=== PATIENT | male | born 1955 | race Caucasian/White ===

== ENCOUNTER 2018-06-01 18:08 | Emergency (ER) | payer BC ==
[2018-06-01] MEDS ORDERED: NORMAL SALINE 1000 ML 1,000 ML IV ONE (18:44)
[2018-06-01 19:03] LABS: ABSOLUTE EOSINOPHILS # (AUTO) 0.1 10^3/uL (0.0-0.6); ABSOLUTE MONOCYTES (AUTO) 0.7 10^3/uL (0.1-1.4); ABSOLUTE NEUT (AUTO) 5.3 10^3/uL (1.7-8.2); BASOPHILS % (AUTO) 0.4 % (0-2); EOSINOPHILS % (AUTO) 0.6 % (0-6); HEMATOCRIT 42.5 % (37.9-51.0); HEMOGLOBIN 14.4 g/dL (13.5-17.0); LYMPHOCYTES % (AUTO) 25.2 % (13-45); MEAN CORPUSCULAR HEMOGLOBIN 31.3 pg (27.0-33.4); MEAN CORPUSCULAR VOLUME 92 fl (80-97); MONOCYTES % (AUTO) 8.7 % (3-13); PLATELET COUNT 278 10^3/uL (150-450); RED BLOOD COUNT 4.62 10^6/uL (4.35-5.55); RED CELL DISTRIBUTION WIDTH 13.6 % (11.5-14.0); SEGMENTED NEUTROPHILS % (AUTO) 65.1 % (42-78); TOTAL CELLS COUNTED % (AUTO) 100 %; WHITE BLOOD COUNT 8.1 10^3/uL (4.0-10.5)
[2018-06-01 19:19] LABS: ALANINE AMINOTRANSFERASE 24 U/L (21-72); ALBUMIN 3.8 g/dL (3.5-5.0); ALKALINE PHOSPHATASE 68 U/L (38-126); ANION GAP 8 (5-19); ASPARTATE AMINO TRANSFERASE 19 U/L (17-59); BILIRUBIN,DIRECT 0.2 mg/dL (0.0-0.4); BILIRUBIN,TOTAL 0.3 mg/dL (0.2-1.3); BLOOD UREA NITROGEN 21 mg/dL (7-20); CALCIUM 9.6 mg/dL (8.4-10.2); CARBON DIOXIDE 27 mmol/L (22-30); CHLORIDE 105 mmol/L (98-107); CREATINE KINASE 115 U/L (55-170); GLUCOSE 118 mg/dL (75-110); SODIUM 139.9 mmol/L (137-145); TOTAL PROTEIN 6.1 g/dL (6.3-8.2)
--- NOTE | 2018-06-01 19:29 | RADIOLOGY REPORT (SQ) ---
EXAM DESCRIPTION: CHEST SINGLE VIEW COMPLETED DATE/TIME: 06/01/2018 7:03 pm REASON FOR STUDY: presyncope COMPARISON: None. EXAM PARAMETERS: NUMBER OF VIEWS: One view. TECHNIQUE: Single frontal radiographic view of the chest acquired. RADIATION DOSE: NA LIMITATIONS: None. FINDINGS: LUNGS AND PLEURA: No opacities, masses or pneumothorax. No pleural effusion. MEDIASTINUM AND HILAR STRUCTURES: No masses. Contour normal. HEART AND VASCULAR STRUCTURES: Heart normal in size. Normal vasculature. BONES: No acute findings. HARDWARE: None in the chest. OTHER: No other significant finding. IMPRESSION: NO ACUTE RADIOGRAPHIC FINDING IN THE CHEST. TECHNICAL DOCUMENTATION: JOB ID: [id number] [employer]- All Rights Reserved Reading location - IP/workstation name: [email or web address]
[2018-06-01 19:30] LABS: CREATINE KINASE MB 1.24 ng/mL (<4.55)
[2018-06-01 19:31] LABS: TROPONIN I < 0.012 ng/mL
--- NOTE | 2018-06-01 22:30 | ER Document Report ---
ED General - General Chief Complaint: Dizziness Stated Complaint: BLURRED VISION Time Seen by Provider: 06/01/18 18:43 Mode of Arrival: Ambulatory Information source: Patient - HPI Patient complains to provider of: Lightheadedness Onset: Other - 62-year-old man who presents for evaluation of lightheadedness which developed today while working outside. He notes that he had been exerting himself a good deal lately and has had episodes like this in the past which he believes may be related to dehydration. He does have a history of hypertension and does take medication for that at this time, does not take any other medicines and has no other real health problems. He denies any chest pain , palpitations, fevers chills abdominal pain shortness of breath or other symptoms, denies any focal numbness or weakness. - Related Data Allergies/Adverse Reactions: Penicillins Allergy (Unknown, Verified 09/28/11 10:44) Past Medical History - General Information source: Patient - Social History Smoking Status: Former Smoker Chew tobacco use (# tins/day): No Frequency of alcohol use: Rare Drug Abuse: None Family History: None Patient has suicidal ideation: No Patient has homicidal ideation: No - Past Medical History Cardiac Medical History: Reports: Hx Hypertension Endocrine Medical History: Reports: Hx Diabetes Mellitus Type 2 - PRE Renal/ Medical History: Denies: Hx Peritoneal Dialysis Review of Systems - Review of Systems -: Yes All other systems reviewed and negative Physical Exam - Vital signs Vitals: Resp Pulse Ox 14 94 06/01/18 18:41 06/01/18 18:41 - General General appearance: Appears well In distress: None - HEENT Head: Normocephalic Eyes: Normal Conjunctiva: Normal Cornea: Normal Extraocular movements intact: Yes Eyelashes: Normal Pupils: PERRL - Respiratory Respiratory status: No respiratory distress Chest status: Nontender Breath sounds: Normal Chest palpation: Normal - Cardiovascular Rhythm: Regular, Other Murmur: No - Abdominal Inspection: Normal Distension: No distension Tenderness: Nontender - Back Back: Normal - Extremities General upper extremity: Normal inspection, Nontender, Normal strength, Normal temperature General lower extremity: Normal inspection, Nontender, Normal strength, Normal temperature - Neurological Neuro grossly intact: Yes Cognition: Normal Orientation: AAOx4 Basim Coma Scale Eye Opening: Spontaneous [place] Coma Scale Verbal: Oriented Basim Coma Scale Motor: Obeys Commands Basim Coma Scale Total: 15 - Psychological Associated symptoms: Normal affect Course - Re-evaluation Re-evalutation: 06/02/18 04:23 Is a well-appearing 62-year-old man that presents for evaluation of lightheadedness in the setting of poor p.o. intake. His EKG is nondiagnostic, he is got a negative initial troponin will obtain labs and plan for cardiac monitoring, his blood pressure is noteworthy for being lower than expected for a patient with baseline hypertension. As his blood pressure is lower than expected we will plan for administration of a liter bolus and reassessment. While at rest this patient is not having any active symptoms at this time is got a benign neurologic examination. Second troponin is negative for this patient, after 4 hours of monitoring in the emergency department he was ambulatory without assistance he had orthostatic vital signs which are reassuring and remained essentially normal without complaint, he did have a elevated creatinine suggestive of renal insufficiency potentially underlying dehydration, he is never been told that he had this before. I did speak to him about the importance of following up with his primary physician as this may be a long standing issue and I did explain to him that I do believe that he is dehydrated. He notes that he will increase his p.o. intake, do not believe that this represents a CVA, IL, arrhythmia, or some other more serious underlying cause of his lightheadedness at this time. He is asymptomatic ambulatory without assistance and in tact. We will plan for this patient undergo discharge with return precautions in the care of his he is in agreement with this current course of actions. - Vital Signs Vital signs: Temp Pulse Resp BP Pulse Ox 98.9 F 73 16 108/69 98 06/01/18 23:01 06/01/18 22:38 06/01/18 23:01 06/01/18 23:01 06/01/18 23:01 - Laboratory Result Diagrams: 06/01/18 18:50 06/01/18 18:50 Laboratory results interpreted by me: 06/01/18 18:50 BUN 21 H Creatinine 1.73 H Est GFR ( Amer) 49 L Est GFR (Non-Af Amer) 40 L Glucose 118 H Total Protein 6.1 L Discharge - Discharge Clinical Impression: Dizziness, Dehydration Condition: Good Disposition: HOME, SELF-CARE Instructions: Dehydration ([facility]), Dizziness ([facility]) Additional Instructions: Your seen today in the emergency department for your dehydration. You had evaluation including a physical exam as well as blood tests and EKG and x-ray. I believe that your lightheadedness is because you are dehydrated. Do not take your blood pressure medication in the morning, make sure you are drinking lots of water over the next 2 days to help with your lightheadedness. Return in any case of worsening chest pain, lightheadedness, or other symptoms. Call your doctor this week for a follow-up appointment about today's visit. Referrals: MELLY SOMMER MD [Primary Care Provider] - Follow up as needed
[2018-06-01 23:32] VITALS: BP 108/69
--- NOTE | 2018-06-02 08:32 | EKG REPORT ---
SEVERITY:- OTHERWISE NORMAL ECG - SINUS RHYTHM BORDERLINE RIGHT AXIS DEVIATION : Confirmed by: Lety Denis 02-Jun-2018 08:31:43
== END 2018-06-01 23:20 | disposition home or self-care (01) ==
LOC: ER 18:08
DX: R42 Dizziness and giddiness (principal); E86.0 Dehydration; H53.8 Other visual disturbances; I10 Essential (primary) hypertension; E11.9 Type 2 diabetes mellitus without complications; Z88.0 Allergy status to penicillin
CPT/HCPCS: 93005; 99284; 96360; 36415; 82553; 82550; 85025; 80053; 84484; 71045; 93010; J7030

== ENCOUNTER 2018-11-17 11:30 | Emergency (ER) | payer BC ==
[2018-11-17] MEDS ORDERED: OXYCODONE-ACETAMINOPHEN 5-325 MG TABLET PO ONE (11:59)
--- NOTE | 2018-11-17 12:03 | ER Document Report ---
ED Medical Screen (RME) - General Chief Complaint: Knee Pain Stated Complaint: LEFT KNEE PAIN Time Seen by Provider: 11/17/18 11:47 Primary Care Provider: MELLY SOMMER MD [Primary Care Provider] - Follow up as needed Mode of Arrival: Ambulatory Information source: Patient Notes: Patient presents to the emergency department with complaints of left knee pain. He reports it started Friday after he was playing on the ground with his grandkids. He does not remember twisting it or hurting his knee but the knee started hurting afterwards. Denies history of gout. Denies this ever happening to before. Reports he took ibuprofen without relief of symptoms. Left knee is warm swollen slightly erythemic. I have greeted and performed a rapid initial assessment of this patient. A comprehensive ED assessment and evaluation of the patient, analysis of test results and completion of the medical decision making process will be conducted by additional ED providers. TRAVEL OUTSIDE OF THE [place] IN LAST 30 DAYS: No - Related Data Allergies/Adverse Reactions: Penicillins Allergy (Unknown, Verified 11/17/18 11:31) Past Medical History - Social History Chew tobacco use (# tins/day): No Frequency of alcohol use: Rare Drug Abuse: None - Past Medical History Cardiac Medical History: Reports: Hx Hypercholesterolemia, Hx Hypertension Endocrine Medical History: Reports: Hx Diabetes Mellitus Type 2 Renal/ Medical History: Denies: Hx Peritoneal Dialysis Physical Exam - Vital signs Vitals: Temp Pulse Resp BP Pulse Ox 97.4 F 72 18 122/75 95 11/17/18 11:35 11/17/18 11:35 11/17/18 11:35 11/17/18 11:35 11/17/18 11:35 Course - Vital Signs Vital signs: Temp Pulse Resp BP Pulse Ox 97.4 F 72 18 122/75 95 11/17/18 11:35 11/17/18 11:35 11/17/18 11:35 11/17/18 11:35 11/17/18 11:35 Doctor's Discharge - Discharge Referrals: MELLY SOMMER MD [Primary Care Provider] - Follow up as needed
--- NOTE | 2018-11-17 13:00 | RADIOLOGY REPORT (SQ) ---
EXAM DESCRIPTION: KNEE LEFT 3 VIEWS COMPLETED DATE/TIME: 11/17/2018 12:36 pm REASON FOR STUDY: knee pain, warm, erythema COMPARISON: None. NUMBER OF VIEWS: Three views. TECHNIQUE: AP, lateral, and sunrise patella radiographic images acquired of the left knee. LIMITATIONS: None. FINDINGS: MINERALIZATION: Normal. BONES: No acute fracture or dislocation. No worrisome bone lesions. JOINT: No effusion. SOFT TISSUES: No soft tissue swelling. No radio-opaque foreign body. OTHER: No other significant finding. IMPRESSION: NEGATIVE STUDY OF THE LEFT KNEE. NO RADIOGRAPHIC EVIDENCE OF ACUTE INJURY. TECHNICAL DOCUMENTATION: JOB ID: [id number] [employer]- All Rights Reserved Reading location - IP/workstation name: [email or web address]
--- NOTE | 2018-11-17 14:25 | ER Document Report ---
ED General - General Chief Complaint: Knee Pain Stated Complaint: LEFT KNEE PAIN Time Seen by Provider: 11/17/18 11:47 Primary Care Provider: MELLY SOMMER MD [Primary Care Provider] - Follow up as needed Mode of Arrival: Ambulatory Notes: 63 y.o. male presents to the emergency department with complaints of left knee pain. He reports it started Friday after he was playing on the ground with his grandkids. He does not remember twisting it or hurting his knee but the knee started hurting afterwards. Denies history of gout. Denies this ever happening to before. Reports he took ibuprofen one time on Friday night without relief of symptoms. Patient states it is gotten progressively worse and has limited range of motion. He is able to hobble around but has pain bearing weight on it. Patient denies fever, chills, nausea, vomiting. No other complaints TRAVEL OUTSIDE OF THE [place] IN LAST 30 DAYS: No - Related Data Allergies/Adverse Reactions: Penicillins Allergy (Unknown, Verified 11/17/18 11:31) Past Medical History - General Information source: Patient - Social History Smoking Status: Never Smoker Chew tobacco use (# tins/day): No Frequency of alcohol use: Rare Drug Abuse: None Family History: None Patient has suicidal ideation: No Patient has homicidal ideation: No - Past Medical History Cardiac Medical History: Reports: Hx Hypercholesterolemia, Hx Hypertension Endocrine Medical History: Reports: Hx Diabetes Mellitus Type 2 Renal/ Medical History: Denies: Hx Peritoneal Dialysis Review of Systems - Review of Systems Constitutional: See HPI EENT: No symptoms reported Cardiovascular: See HPI Respiratory: See HPI Gastrointestinal: See HPI Genitourinary: No symptoms reported Male Genitourinary: No symptoms reported Musculoskeletal: No symptoms reported Skin: No symptoms reported Hematologic/Lymphatic: No symptoms reported Neurological/Psychological: No symptoms reported Physical Exam - Vital signs Vitals: Temp Pulse Resp BP Pulse Ox 97.4 F 72 18 122/75 95 11/17/18 11:35 11/17/18 11:35 11/17/18 11:35 11/17/18 11:35 11/17/18 11:35 - Notes Notes: PHYSICAL EXAMINATION: Reviewed vital signs and charting by RN GENERAL: Alert, interacts well. No acute distress. HEAD: Normocephalic, atraumatic. EYES: Pupils equal and round. Extraocular movements intact. ENT: Oral mucosa moist NECK: Full range of motion. Trachea midline. EXTREMITIES: Moves all 4 extremities spontaneously. Mild edema left knee and slightly erythematous, No cyanosis. Normal distal neurovascular exam NEUROLOGIC: Oriented and appropriate. Normal speech. PSYCH: Normal affect, normal mood. SKIN: Warm, dry, normal turgor. No rashes or lesions noted. Course - Re-evaluation Re-evalutation: 11/17/18 14:19 Well-appearing and nontoxic. Patient does have range of motion with the knee although there is pain. Knee is warm to touch and mildly erythematous. I do not suspect patient has a septic joint at this time. Most likely a prepatellar bursitis. I will give patient instructions for home and follow-up with orthopedics if his symptoms do not improve in the next 1-2 weeks. - Vital Signs Vital signs: Temp Pulse Resp BP Pulse Ox 97.4 F 72 18 122/75 95 11/17/18 11:35 11/17/18 11:35 11/17/18 11:35 11/17/18 11:35 11/17/18 11:35 Discharge - Discharge Clinical Impression: Prepatellar bursitis of left knee Condition: Good Disposition: HOME, SELF-CARE Instructions: Bursitis ([facility]) Additional Instructions: You were seen in the emergency department this afternoon for knee pain. X-ray shows no concern for fracture, dislocation, or air in the soft tissue that would be concerning for serious infection. It is most likely that you have a prepatellar bursitis. This can happen with repeated kneeling on the ground. It is usually very painful. I do not think you have what is called septic arthritis as you are able to move your knee and you do not have fever or any systemic signs of infection. I strongly recommend that you take Motrin 600 mg every 6 hours [id number] for the next 3-5 days. You can also employ RICE treatment: Rest, ice, compression with an Mario wrap, and elevation of the extremity. If the next several days your symptoms do not improve recommend that you follow-up with orthopedics. I have given you a referral to their office. Your knee becomes more swollen, you are unable to move it at all, it becomes much redder and starts spreading, you develop a fever please immediately return to the emergency department as this is infection. Referrals: MELLY SOMMER MD [Primary Care Provider] - Follow up as needed
[2018-11-17 14:41] VITALS: BP 115/71
== END 2018-11-17 14:45 | disposition home or self-care (01) ==
LOC: ER 11:30
DX: M70.42 Prepatellar bursitis, left knee (principal); E78.00 Pure hypercholesterolemia, unspecified; I10 Essential (primary) hypertension; E11.9 Type 2 diabetes mellitus without complications; Z88.0 Allergy status to penicillin
CPT/HCPCS: 99283

== ENCOUNTER → 2020-06-02 | Outpatient (CLI) | payer BC ==
--- NOTE | 2020-06-02 13:58 | ER RDC ASSESSMENT REPORT ---
Intake - In the Last 14 days Have you been in close contact with someone CONFIRMED: No Worked in Healthcare?: No - Symptoms Subjective Fever([place] feverish): Yes Chills: No Muscule Aches: No Runny Nose: No Sore Throat: No Cough (New or worsening chronic cough): No Shortness of breath: No Nausea or Vomiting: No Headache: No Abdominal Pain: No Diarrhea(3 or more loose stools in last 24 hours): No - Do you have any of the following Chronic lung disease: Asthma or emphysema or COPD: No Cystic Fibrosis: No Diabetes: No High Blood Pressure: No Cardiovascular Disease: No Chronic Kidney Disease: No Chronic Liver Disease: No Chronic blood disorder like Sickle Cell Disease: No Weak immune system due to disease or medication: No Neurologic condition that limits movement: No Developmental delay - Moderate to Severe: No Recent (within past 2 weeks) or current : No Morbid Obesity (>100 pounds over ideal weight): No - Objective Temperature: 97.4 F Pulse Rate: 69 Respiratory Rate: 18 Blood Pressure: 119/72 O2 Sat by Pulse Oximetry: 92 Objective: Patient is a well-appearing 64-year-old male, who presents today for COVID-19 screening. Disposition: Home; Selfcare General - General Stated Complaint: Upper respiratory symptoms Mode of Arrival: Ambulatory Information source: Patient Notes: The patient was evaluated during the global COVID-19 pandemic. That diagnosis was suspected/considered upon initial presentation. Their evaluation, treatment, and testing was consistent with current guidelines for patients who present with complaints or symptoms that may be related to COVID-19. - HPI Patient complains to provider of: Upper respiratory symptoms Onset: This morning Onset/Duration: Waxing and waning Quality of pain: No pain Severity: None Pain Level: Denies Associated symptoms: Fever Exacerbated by: Denies Relieved by: Denies Similar symptoms previously: No Recently seen / treated by doctor: No - Related Data Allergies/Adverse Reactions: Penicillins Allergy (Unknown, Verified 11/17/18 11:31) Past Medical History - Social History Smoking Status: Former Smoker Cigarette use (# per day): No - Quit 20+ years ago Chew tobacco use (# tins/day): No Smoking Education Provided: Yes Frequency of alcohol use: None Drug Abuse: None Occupation: Retired Lives with: Family Family History: None Patient has suicidal ideation: No Patient has homicidal ideation: No - Past Medical History Cardiac Medical History: Reports: Hx Hypercholesterolemia, Hx Hypertension Endocrine Medical History: Reports: Hx Diabetes Mellitus Type 2 Renal/ Medical History: Denies: Hx Peritoneal Dialysis Physical Exam - General General appearance: Appears well In distress: None Notes: PHYSICAL EXAMINATION: GENERAL: Well-appearing and in no acute distress. HEAD: Atraumatic, normocephalic. EYES: Sclera anicteric, conjunctiva are normal. ENT: Nares patent. Moist mucous membranes. NECK: Normal range of motion, supple without lymphadenopathy. LUNGS: CTAB and equal. No wheezes rales or rhonchi. HEART: Regular rate and rhythm without murmurs. ABDOMEN: Soft, nontender, normal bowel sounds, no guarding. EXTREMITIES: Normal range of motion, no pitting edema. No cyanosis. BACK: No midline or CVA tenderness. NEUROLOGICAL: Cranial nerves grossly intact. Normal speech. Normal gait. PSYCH: Normal mood and affect. Calm, cooperative, and answers questions appropriately. SKIN: Warm, Dry, normal color and turgor, no obvious lesions or rash noted. Diagnostic Results Laboratory Results: Patient advised at this time they are considered a Person Under Investigation (PUI) for the COVID-19 Coronavirus. They have been made aware it is currently taking 3 to 5 days to receive their results. Patient advised The [facility] Department will call to notify them of a POSITIVE result, and an [facility] produce team member will call to notify them of a NEGATIVE result. Patient Education/Counseling Counseling/Education: Patient presents with upper respiratory symptoms worrisome for possible COVID- 19. Patient does not have symptoms worrisome as an emergency such as difficulty breathing, shortness of breath, chest pain, pressure, confusion or cyanosis. Patient appears suitable for discharge. Patient's vital signs are stable and patient is nontoxic in appearance. Good return precautions have been discussed with patient, patient verbalized understanding and is agreeable with discharge plan of care at this time. Patient provided COVID-19 discharge instructions to include: As a person under investigation for COVID-19, the [facility], division of public health advises you to adhere to the following guidance until your test results are reported to you. If your test result is positive, you will receive additional information from your provider and your local health department at that time. Remain at home until you are cleared by the health provider or public health authorities. Keep a log of visitors to your home, notify any visitors to your home of your isolation status. If you plan to move to a new address or leave the county, notify the local health department in your County. Call your doctor or seek care if you have an urgent medical need. Before seeking medical care, call ahead to get instructions from the provider before arriving at the medical office clinic or hospital. Notify them that you are being tested for the virus that causes COVID-19 so that arrangements can be made, as necessary, to prevent transmission to others in the healthcare setting. Next, notify the local health department in your county. If a medical emergency arises and you need to call 911, inform dispatch and the first responders that you are being tested for the virus that causes COVID-19. Next, notify the local health department in your county. Patient provided education on smoking cessation and the harmful effects of smoking, especially in the presence of Co-morbid conditions such as Hypertension, Diabetes, and/or other chronic illnesses. Patient verbalized understanding of smoking cessation education, and the increased health benefits of quitting. Guidance for worsening S/SX: For worsening symptoms, patient has been advised to contact their Primary Care Provider, or go to the nearest Emergency Department. RDC Discharge - Discharge Clinical Impression: COVID-19 Screening URI (upper respiratory infection) Qualifiers: URI type: unspecified URI Qualified Code(s): J06.9 - Acute upper respiratory infection, unspecified Condition: Stable Disposition: Home; Selfcare
[2020-06-02 14:03] VITALS: BP 119/72
== END ==
LOC: RDC 13:03
PROVIDERS: ATTEND Nurse Practitioner Family
DX: J06.9 Acute upper respiratory infection, unspecified (principal); R50.9 Fever, unspecified; E78.00 Pure hypercholesterolemia, unspecified; I10 Essential (primary) hypertension; E11.9 Type 2 diabetes mellitus without complications; Z20.828 Contact with and (suspected) exposure to other viral communicable diseases
CPT/HCPCS: U0003; C9803; 87635